=== PATIENT | female | born 1945 | race Hispanic/Latino ===

== ENCOUNTER 2017-08-06 06:36 | Day surgery (SDC) | payer MEDICARE, BC ==
[2017-08-03 09:00] VITALS: BMI 35.0
--- NOTE | 2017-08-06 01:07 | HP ---
REASON FOR ADMISSION: Left heart cath, possible angioplasty, abnormal stress test. HISTORY OF PRESENT ILLNESS: This is a 71-year-old female with a past medical history significant for obesity, hypertension, hyperlipidemia, mitral and tricuspid regurgitation, COPD; underwent a stress test that shows the anterior wall ischemia. The patient is scheduled for elective cardiac cath and possible angioplasty. PAST MEDICAL HISTORY: Significant for diabetes, hypertension, hyperlipidemia, obesity, and COPD. SOCIAL HISTORY: Denies smoking. Denies any history of alcohol abuse. CURRENT MEDICATIONS: The patient is taking tramadol 50 mg daily, metformin 500 mg p.o. b.i.d., Neurontin 300 mg p.o. b.i.d., Naprosyn 500 mg twice a day, metolazone p.r.n, aspirin 81 mg daily, amlodipine 5 mg daily, albuterol inhaler 2.5 q. 6 hours p.r.n., Protonix, Singulair, Mobic, atorvastatin 20 mg daily, nebulizer albuterol inhaler two puffs q. 4 h. ALLERGIES: NO KNOWN DRUG ALLERGIES. REVIEW OF SYSTEMS: As per HPI. PHYSICAL EXAMINATION GENERAL: Height of the patient is 5 feet 3 inches, weight of the patient is 198 pounds, body mass index of 35 kg/m2. Blood pressure 130/68, heart rate 63. HEENT: PERRLA intact. NECK: Supple. No carotid bruits, JVD, or thyromegaly. CHEST: Clear to auscultation. HEART: S1 and S2 regular. ABDOMEN: Soft. EXTREMITIES: Clubbing and cyanosis negative. DIAGNOSTIC DATA: Previous cardiac workup as follows: The patient had a stress test dated 04/29/2017 that showed abnormal SPECT myocardial perfusion study, reversible small anterior apical defect perfusion ischemia; however, the effect of changing position of the breast cannot be excluded. When comparisons were made from previous stress test dated 06/21/2012, these defects are new. The patient had echocardiography done dated 04/15/2017 that showed the ejection fraction of 65% to 70%, trace mitral regurgitation and tricuspid regurgitation. RV systolic pressure was 23. The patient wanted to get it done after the holidays after the [place]. IMPRESSION AND PLAN: A 71-year-old obese female with past medical history significant for diabetes, hypertension, and hyperlipidemia, multivessel coronary artery disease, who underwent a stress test that was abnormal suggestive of ischemia. The patient is scheduled for elective cardiac cath, possible angioplasty. The patient was offered before, but the patient wanted to wait until the holidays after the [place]. The patient is scheduled for cardiac cath, possible angioplasty. We will review the lab. Further recommendation after the cardiac catheterization. We will follow up with you. Thank you Dr. Jorge for providing me the opportunity in taking care of this patient. Elton Adamson MD
[2017-08-06] MEDS ORDERED: Lidocaine 2% Inj (20ml) ONE (06:52)
[2017-08-06] MEDS ORDERED: Phenylephrine 10 mg/ml Inj ONE (06:53)
[2017-08-06] MEDS ORDERED: Midazolam 2 MG/2 ML VIAL ONE ×2 (06:53→08:31)
[2017-08-06] MEDS ORDERED: HEPARIN SODIUM/NS 2,000 ML IV ONE (06:54)
[2017-08-06] MEDS ORDERED: Iohexol 350mgl/ml 50 ML ONE (06:54)
[2017-08-06] MEDS ORDERED: Nitroglycerin 50mg in D5W 50 MG/250 ML BOTTLE IV ONE (06:54)
[2017-08-06] MEDS ORDERED: Iodixanol 320 MG/ML 200 ML BOTTLE IV ONE (06:54)
[2017-08-06] MEDS ORDERED: Iodixanol 320 MG/ML 100 ML BOTTLE IV ONE (06:54)
[2017-08-06 07:45] LABS: BASO # 0.04 K/mm3 (0.0-2.0); BASO % 0.4 % (0.0-3.0); EOS # 0.3 (0.0-0.7); EOS % 3.4 % (1.5-5.0); GRAN # 5.57 (1.4-6.5); GRAN % 57.4 % (50.0-68.0); HEMOGLOBIN 12.4 g/dL (12.0-16.0); LYMPH # 2.9 (1.2-3.4); LYMPH % 29.5 % (22.0-35.0); MEAN CELL VOLUME 89.2 fl (80.0-105.0); MEAN CORPUSCULAR HEMOGLOBIN 27.3 pg (25.0-35.0); MEAN CORPUSCULAR HGB CONC 30.5 g/dl (31.0-37.0); MEAN PLATELET VOLUME 10.8 fl (7.0-11.0); MONO # 0.9 (0.1-0.6); MONO % 9.3 % (1.0-6.0); RBC 4.55 10^6/uL (3.5-6.1); RED CELL DISTRIBUTION WIDTH 13.9 % (11.5-14.5); WHITE BLOOD COUNT 9.7 10^3/ul (4.5-11.0)
[2017-08-06 07:54] LABS: INR 0.91 (0.93-1.08); PARTIAL THROMBOPLASTIN TIME 28.3 Seconds (25.1-36.5); PROTHROMBIN TIME 10.4 SECONDS (9.4-12.5)
[2017-08-06 07:59] LABS: BLOOD UREA NITROGEN 25 mg/dL (7-21); CALCIUM 9.8 mg/dL (8.4-10.5); GFR AFRICAN-AMERICAN > 60; GFR NON-AFRICAN AMERICAN > 60; HDL CHOLESTEROL 86 mg/dL (29-60)
[2017-08-06 08:06] LABS: LDL CHOLESTEROL 101 mg/dL (0-129)
[2017-08-06] MEDS ORDERED: Bacitracin 500 Units/gm Oint Foilpak UD TOP ONE (09:10)
[2017-08-06] MEDS ORDERED: Sodium Chloride 0.9% 1,000 ML IV SCH (09:15)
[2017-08-06 09:32] VITALS: TEMP 98.2
[2017-08-06 09:59] VITALS: RESP 20
[2017-08-06 10:10] VITALS: O2SAT 97
[2017-08-06] MEDS ORDERED: Bacitracin 500 Units/gm Oint Foilpak UD ONE (12:19)
[2017-08-06 12:33] VITALS: BP 138/93; PULSE 70
--- NOTE | 2017-08-06 17:54 | CARD ---
APPROVED REPORT EKG Measurement Heart [id number] <Conclusion> Normal sinus rhythm Right bundle branch block Abnormal ECG
--- NOTE | 2017-08-06 19:16 | CARD ---
APPROVED REPORT Procedure(s) performed: Left Heart Catheterization HISTORY The patient is a 71 year-old female with a history of : most recent EF: 75%. (EF Method: RADIONUCLIDE), diabetes mellitus with oral treatment , chronic lung disease, tobacco history() : The patient is a former smoker , hypertension , dyslipidemia , Abnorma;l stress test showing apical ischemis. INDICATION The indication(s) include : positive stress test. CASE TECHNIQUE The patient was brought electively to the Cardiac Catheterization Laboratory in a fasting state and was prepped and draped in a sterile manner. The left wrist was infiltrated with 2% Lidocaine subcutaneous anesthesia. A 6FR GLIDESHEATH ACCESS KIT sheath was inserted into the left radial artery without difficulty. Coronary angiography was performed using coronary diagnostic catheters. The left coronary system was accessed and visualized with a Diagnostic ,5 Fr JL 3.5 catheter. The right coronary system was accessed and visualized with a Diagnostic ,5 Fr JR 4 catheter. The left ventricle was accessed and visualized with a 5 Fr Pigtail 145 (Angled) catheter. Closure device was deployed with a Fr TR Band (Regular) without any complications. The patient tolerated the procedure well and there were no complications associated with the procedure. Vessel Analysis The patient's coronary anatomy is co-dominant. The left main coronary artery is a medium size vessel . The left main bifurcates to the left anterior descending and circumflex. The left anterior descending artery is a medium size vessel with diffuse calcification noted throughout this vessel and without significant stenosis. There is a 50% stenosis in the mid segment. The first diagonal branch is a medium size vessel with diffuse calcification noted throughout this vessel and without significant stenosis. There is a 55-60% stenosis in the ostial segment. The circumflex artery is a medium size vessel with diffuse calcification noted throughout this vessel and without significant stenosis. The first obtuse marginal branch is a medium size vessel with diffuse calcification noted throughout this vessel and without significant stenosis. The left posterior descending artery is a medium size vessel with diffuse calcification noted throughout this vessel and without significant stenosis. The right coronary artery is a medium size vessel with diffuse calcification noted throughout this vessel and without significant stenosis. The right posterior descending artery is a medium size vessel with intimal irregularities and without significant stenosis. Left Ventricle The left ventricle is normal in size with normal contractility. There was no cardiomyopathy. The left ventricular ejection fraction is estimated to be 60-65%. The left ventricular end diastolic pressure is 16-18 mmHg. There was no gradient across the aortic valve upon pullback. Conclusion Non obstructive CAD limited to mid LAD 50%, and Ostial D1 55% preserved LV Fx.EF-60-65%,EDP-16-18 mmof Hg Recommendations Aggressive Medical TherapyCardiac Risk Reduction Program Weight Loss Reduction Program CC; Zaire/ Angela
== END 2017-08-06 13:15 | disposition home or self-care (01) ==
LOC: CATH 06:36
PROVIDERS: ATTEND Internal Medicine Cardiovascular Disease
DX: I25.10 Atherosclerotic heart disease of native coronary artery without angina pectoris (principal); E11.9 Type 2 diabetes mellitus without complications; J44.9 Chronic obstructive pulmonary disease, unspecified; E66.9 Obesity, unspecified; Z68.35 Body mass index [BMI] 35.0-35.9, adult; E78.5 Hyperlipidemia, unspecified; I10 Essential (primary) hypertension; Z79.84 Long term (current) use of oral hypoglycemic drugs; Z79.82 Long term (current) use of aspirin; Z87.891 Personal history of nicotine dependence
CPT/HCPCS: 36415; 80048; 80061; 85025; 85610; 85730; 86850; 86900; 93005; 93458; 99152; C1769; C1887 ×2; J1644 ×2; J2250; J2370; J3010; J7040 ×2; Q9967

== ENCOUNTER 2018-08-21 09:07 | Emergency (ER) | payer MEDICARE, BC ==
[2018-08-21 09:12] VITALS: BMI 35.4
[2018-08-21] MEDS ORDERED: Sodium Chloride 0.9% 1,000 ML IV SCH (09:30)
--- NOTE | 2018-08-21 09:37 | ED PDOC ---
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 Patient reports woke up and had an episode of room spinning dizziness with associated stuttering and nausea that lasted approximately 30 minutes. Patient states feeling resolved on its own and was able to call and the ambulance. Patient currently complaining of mild nausea. Pt had vertigo last year but did not come to ER for evaluation, states it was similar to this. Patient states she experiences stuttering whenever shes not feeling well ever since the resection of her brain tumor. Patient reports she did not take any of her medication this morning and has not yet eaten today. Patient denies any fever, chills, shortness of breath, chest pain, vision changes, facial droop, weakness, numbness, parasthesia, back pain, neck pain, headache, or any other complaints. PMD: Berhane Leos Time/Duration: 4-6 hours (earlier today) Symptom Onset: Sudden Symptom Course: Improving Activities at Onset: Light Context: Home Past Medical History - Provider Review Nursing Documentation Reviewed: Yes - Infectious Disease Hx of Infectious Diseases: None - Tetanus Immunization Tetanus Immunization: Unknown - Reproductive Menopause: Yes - Cardiac Hx Pacemaker: No - Pulmonary Hx Chronic Obstructive Pulmonary Disease (COPD): Yes - Neurological Hx Paralysis: No - HEENT Hx HEENT Disorder: Yes Hx Cataracts: Yes Hx Glaucoma: Yes Other/Comment: h/o cataract implants - Renal Hx Renal Disorder: No - Endocrine/Metabolic Hx Endocrine Disorders: Yes Hx Diabetes Mellitus Type 2: Yes - Hematological/Oncological Hx Blood Transfusions: Yes - Integumentary Hx Dermatological Disorder: Yes (SCAR TO RIGHT FOOT AREA AND LEG.) - Musculoskeletal/Rheumatological Hx Musculoskeletal Disorders: Yes - Gastrointestinal Hx Gastrointestinal Disorders: Yes (RECTAL BLEED,COLON SURGERY) Hx Gastroesophageal Reflux: Yes - Genitourinary/Gynecological Hx Genitourinary Disorders: No - Psychiatric Hx Substance Use: No - Surgical History Hx Appendectomy: Yes Hx Cholecystectomy: Yes Other/Comment: BRAIN SX 20YRS .SX FOR INTESTIN .NECK SX 2008. spinal surgery C1- C7 march 2016. - Anesthesia Hx Anesthesia Reactions: No Hx Malignant Hyperthermia: No - Suicidal Assessment Feels Threatened In Home Enviroment: No Family/Social History - Physician Review Nursing Documentation Reviewed: Yes Family/Social History: No Known Family HX Smoking Status: Former Smoker Hx Alcohol Use: No Hx Substance Use: No Hx Substance Use Treatment: No Allergies/Home Meds Allergies/Adverse Reactions: Allergies No Known Allergies Allergy (Verified 08/01/16 14:08) Home Medications: Home Meds Medication Instructions Recorded Confirmed Atorvastatin Calcium [Lipitor] 10 mg PO HS 08/06/12 06/15/18 FLUoxetine [Prozac] 20 mg PO HS 04/29/17 06/15/18 Prednisone [Ludin] 5 mg PO DAILY 04/29/17 08/21/18 Aspirin [Aspirin Chewable] 81 mg PO DAILY 08/03/17 06/15/18 Gabapentin [Neurontin] 300 mg PO BID 08/03/17 06/15/18 amLODIPine [Norvasc] 5 mg PO DAILY 08/03/17 06/15/18 metFORMIN [glucOPHAGE] 500 mg PO BID 08/03/17 06/15/18 traMADol [Ultram] 50 mg PO Q6H PRN 08/03/17 06/15/18 Esomeprazole Magnesium [Nexium] 40 mg PO DAILY 08/21/18 08/21/18 Meloxicam [Mobic] 15 mg PO PRN PRN 08/21/18 08/21/18 Review of Systems - Physician Review All systems were reviewed & negative as marked: Yes - Review of Systems Constitutional: Normal. absent: Fevers, Other (chills) Eyes: Normal. absent: Vision Changes ENT: Normal. absent: Sore Throat, Sinus Congestion Respiratory: Normal. absent: SOB Cardiovascular: Normal. absent: Chest Pain Gastrointestinal: Nausea. absent: Abdominal Pain, Stool Changes, Vomiting, Appetite Changes Genitourinary Female: absent: Dysuria, Frequency, Vaginal Bleeding, Vaginal Discharge Musculoskeletal: absent: Back Pain, Neck Pain, Joint Swelling Skin: Normal. absent: Rash Neurological: Normal, Dizziness, Other (stuttering, no weakness, numbness, or parasthesia,). absent: Headache, Facial Droop Physical Exam Vital Signs Reviewed: Yes Temperature: Afebrile Blood Pressure: Normal Pulse: Regular Respiratory Rate: Normal Appearance: Positive for: Well-Appearing, Non-Toxic Mental Status: Positive for: Alert and Oriented X 3 Finger Stick Blood Glucose: 132 - Systems Exam Head: Present: Atraumatic, Normocephalic Pupils: Present: PERRL Extroacular Muscles: Present: EOMI Conjunctiva: Present: Normal Ears: Present: Normal Mouth: Present: Moist Mucous Membranes Neck: Present: Normal Range of Motion. No: Meningeal Signs, MIDLINE TENDERNESS, Paraspinal Tenderness Respiratory/Chest: Present: Decreased Breath Sounds (bilaterally). No: Respiratory Distress, Accessory Muscle Use Cardiovascular: Present: Regular Rate and Rhythm, Normal S1, S2, Peripheal Pulses Present. No: Murmurs Abdomen: Present: Normal Bowel Sounds. No: Tenderness, Distention, Peritoneal Signs Back: Present: Normal Inspection. No: CVA Tenderness Upper Extremity: Present: Normal Inspection, Normal ROM, NORMAL PULSES, Neurovascularly Intact, Capillary Refill < 2s. No: Cyanosis, Edema, Temperature Abnormalties Lower Extremity: Present: NORMAL PULSES, Neurovascularly Intact, Capillary Refill < 2 s. No: Temperature Abnormalties Neurological: Present: GCS=15, CN II-XII Intact, Speech Normal, Motor Func Grossly Intact, Normal Sensory Function, Normal Cerebellar Funct, Gait Normal, Memory Normal Skin: Present: Warm, Dry, Normal Color. No: Rashes Lymphatic: No: Cervical Adenopathy Psychiatric: Present: Alert, Oriented x 3, Normal Insight, Normal Concentration, Normal Affect, Normal Mood Medical Decision Making ED Course and Treatment: 08/21/18 09:05 Impression: 72 year old female presents to the emergency department complaining of vertigo. Plan: -- Fingerstick -- EKG -- Labs -- Chest X-ray -- Aspirin -- Antivert -- Zofran -- IV fluids -- Urinalysis, culture -- Reassess and disposition Prior Visits: Notes and results from previous visits were reviewed. Patient was seen on 08/01/16 for wheezing and shortness of breath and was admitted for observation. Progress Notes: Fingerstick wnl EKG similar to prior, no acute changes 09:[address] Aguilar who also saw and examined patient at bedside, agrees with plan of care and disposition. Patient has experienced these symptoms in the past, has history of vertigo and stuttering since brain surgery approx 20 years ago, states that this time was just "worst than the last few times". No focal neurologic findings. No indication for code stroke. 11:00 Labwork unremarkable UA shows trace leuk esterase and blood, will give antibiotics for possible UTI. CT head negative for acute pathology. Will give ASA. 11:15 Patient reports complete resolution of symptoms with IVF and Meclizine. Spoke with PMD Dr. Berhane Jorge. States there is no criteria for admission at this time, but will keep patient in observation if she desires. Spoke with patient, who is requesting discharge home. Will discharge home secondary to unremarkable workup and given that patient is currently asymptomatic. Denies dizziness, chest pain, SOB, or any neurological complaints. Dr. Aguilar agrees with disposition. 11:53 PMD, Dr. Jorge came to the ER to evaluate patient at bedside, agrees with disposition to discharge patient home. - Lab Interpretations Lab Results: 08/21/18 09:35 08/21/18 09:35 Lab Results 08/21/18 09:55: Influenza Typ A,B (EIA) Negative for flu a/b 08/21/18 09:55: Urine Color Yellow, Urine Appearance Clear, Urine pH 6.0, Ur Specific [place] >= 1.030, Urine Protein Negative, Urine Glucose (UA) Negative, Urine Ketones Negative, Urine Blood Trace-intact H, Urine Nitrate Negative, Urine Bilirubin Negative, Urine Urobilinogen 0.2, Ur Leukocyte Esterase Trace H, Urine RBC 1 - 3 H, Urine WBC 2 - 5, Ur Epithelial Cells 1 - 3, Urine Bacteria Few 08/21/18 09:35: Hemoglobin A1c 7.9 H 08/21/18 09:35: Sodium 141, Potassium 4.5, Chloride 103, Carbon Dioxide 30, Anion Gap 13, BUN 24 H, Creatinine 0.7, Est GFR ( Amer) > 60, Est GFR (Non-Af Amer) > 60, Random Glucose 129 H, Calcium 9.5, Total Bilirubin 0.5, AST 19, ALT 17, Alkaline Phosphatase 88, Troponin I < 0.01, NT-Pro-B Natriuret Pep 220, Total Protein 7.2, Albumin 4.0, Globulin 3.2, Albumin/Globulin Ratio 1.3, Triglycerides 133, Cholesterol 180, LDL Cholesterol Direct 85, HDL Cholesterol 69 H 08/21/18 09:35: PT 10.2, INR 0.90, APTT 36.0 08/21/18 09:35: WBC 9.1 D, RBC 4.72, Hgb 12.4, Hct 40.6, MCV 86.0, MCH 26.3, MCHC 30.5 L, RDW 14.0, Plt Count 312, MPV 10.2, Neut % (Auto) 60.6, Lymph % ( Auto) 26.5, [place] % (Auto) 8.8 H, Eos % (Auto) 3.9, Baso % (Auto) 0.2, Lymph # (Auto) 2.4, [place] # (Auto) 0.8 H, Eos # (Auto) 0.4, Baso # (Auto) 0.02, Absolute Neuts (auto) 5.48 I have reviewed the lab results: Yes - RAD Interpretation Narrative RAD Interpretations (Text): 08/21/18 10:56 PROCEDURE: CT HEAD WITHOUT CONTRAST. D[employer] Transfer Car Operator : Joon Mohan MD FINDINGS: HEMORRHAGE: No intracranial hemorrhage. BRAIN: No mass effect or edema. Mild atrophy and [id number] white matter changes likely represent chronic microvascular ischemic disease. VENTRICLES: Unremarkable. No hydrocephalus. CALVARIUM: The patient status post prior temporal frontal craniotomy. PARANASAL SINUSES: Unremarkable as visualized. No significant inflammatory changes. MASTOID AIR CELLS: Unremarkable as visualized. No inflammatory changes. OTHER FINDINGS: None. IMPRESSION: No evidence of acute intracranial hemorrhage mass effect or midline shift. CXR: No interval change, no active disease Radiology Orders: 08/21/18 09:29 HEAD W/O CONTRAST [CT] Stat 08/21/18 09:30 CHEST PORTABLE [RAD] Stat Professor Of Geology: Radiologist - EKG Interpretation EKG Interpretation (Text): 08/21/18 09:36 Rate 78; NSR, RBBB; Normal intervals; No STEMI, nonspecific ST/T wave changes Interpreted by ED Physician: Yes (Dr. Aguilar) Type: 12 lead EKG Comparison: Similar to previous EKG - Medication Orders Current Medication Orders: Sodium Chloride (Sodium Chloride 0.9%) 1,000 mls @ 100 mls/hr IV .Q10H KEITH NIHSS Scale (Goff) Time Performed: 09:37 - How Severe is the Stoke Baseline Level of Consciousness: 0=Alert LOC to Questions: 0=Both comments correct LOC to commands: 0=Obeys both correctly Best Gaze: 0=Normal Visual: 0=No visual loss Facial: 0=Normal Motor Arm - Left: 0=No drift Motor Arm - Right: 0=No drift Motor Leg - Left: 0=No drift Motor Leg - Right: 0=No drift Limb Ataxia: 0=Absent Sensory: 0=Normal Best Language: 0=No aphasia Dysarthia: 0=Normal articulation Extinction & Inattention (Neglect): 0=Normal, no object Score: 0 Risk Level: No Stroke Risk - Scribe Statement The provider has reviewed the documentation as recorded by the Shanthiibe Marilou Ward All medical record entries made by the Scribe were at my direction and personally dictated by me. I have reviewed the chart and agree that the record accurately reflects my personal performance of the history, physical exam, medical decision making, and the department course for this patient. I have also personally directed, reviewed, and agree with the discharge instructions and disposition. Disposition/Present on Arrival - Present on Arrival Any Indicators Present on Arrival: No History of DVT/PE: No History of Uncontrolled Diabetes: No Urinary Catheter: No History of Decub. Ulcer: No History Surgical Site Infection Following: None - Disposition Have Diagnosis and Disposition been Completed?: Yes Diagnosis: Vertigo Disposition: HOME/ ROUTINE Disposition Time: 11:45 Condition: IMPROVED Discharge Instructions (ExitCare): Vertigo (a Type of Dizziness), Labyrinthitis Additional Instructions: Increase fluids Keflex every 12 hours for 7 days Antivert every 12 hours as needed Followup with Dr. Jorge within 2 days Followup with ENT within 2 days Followup with neurology within 2 days Return to ER with any new/worsening symptoms Prescriptions: Cephalexin [Keflex] 500 mg PO Q12H 7 Days #14 capsule Meclizine [Antivert] 12.5 mg PO Q12H #6 tab Referrals: Ronan Mckenzie DO [Staff Provider] - Follow up with primary Berhane Jorge JD, MD [Primary Care Provider] - Follow up with primary Danay Aceves MD [Staff Provider] - Follow up with primary Forms: [facility] (Kinyarwanda), WORK NOTE
[2018-08-21 09:40] VITALS: RESP 19; TEMP 98
[2018-08-21 09:47] LABS: BASO # 0.02 K/mm3 (0.0-2.0); BASO % 0.2 % (0.0-3.0); EOS # 0.4 (0.0-0.7); EOS % 3.9 % (1.5-5.0); HEMOGLOBIN 12.4 g/dL (12.0-16.0); LYMPH # 2.4 (1.2-3.4); LYMPH % 26.5 % (22.0-35.0); MEAN CORPUSCULAR HEMOGLOBIN 26.3 pg (25.0-35.0); MEAN CORPUSCULAR HGB CONC 30.5 g/dl (31.0-37.0); MEAN PLATELET VOLUME 10.2 fl (7.0-11.0); MONO # 0.8 (0.1-0.6); MONO % 8.8 % (1.0-6.0); RBC 4.72 10^6/uL (3.5-6.1); WHITE BLOOD COUNT 9.1 10^3/uL (4.5-11.0)
[2018-08-21 09:52] LABS: INR 0.9; PROTHROMBIN TIME 10.2 SECONDS (9.4-12.5)
[2018-08-21 09:59] LABS: ALB/GLOB RATIO 1.3 (1.1-1.8); ALT/SGPT 17 U/L (7-56); AST/SGOT 19 U/L (14-36); BLOOD UREA NITROGEN 24 mg/dL (7-21); CALCIUM 9.5 mg/dL (8.4-10.5); GFR NON-AFRICAN AMERICAN > 60; HDL CHOLESTEROL 69 mg/dL (29-60)
[2018-08-21 10:10] LABS: B-TYPE NATRIURETIC PEPTIDE 220 pg/mL (0-450); LDL CHOLESTEROL 85 mg/dL (0-129); TROPONIN I < 0.01 ng/mL
--- NOTE | 2018-08-21 10:14 | CT ---
Date of service: 08/21/2018 PROCEDURE: CT HEAD WITHOUT CONTRAST. HISTORY: dizziness COMPARISON: None available. TECHNIQUE: Axial computed tomography images were obtained through the head/brain without intravenous contrast. Radiation dose: Total exam DLP = 847.69 mGy-cm. This CT exam was performed using one or more of the following dose reduction techniques: Automated exposure control, adjustment of the mA and/or kV according to patient size, and/or use of iterative reconstruction technique. FINDINGS: HEMORRHAGE: No intracranial hemorrhage. BRAIN: No mass effect or edema. Mild atrophy and [id number] white matter changes likely represent chronic microvascular ischemic disease. VENTRICLES: Unremarkable. No hydrocephalus. CALVARIUM: The patient status post prior temporal frontal craniotomy. PARANASAL SINUSES: Unremarkable as visualized. No significant inflammatory changes. MASTOID AIR CELLS: Unremarkable as visualized. No inflammatory changes. OTHER FINDINGS: None. IMPRESSION: No evidence of acute intracranial hemorrhage mass effect or midline shift.
[2018-08-21 10:44] LABS: URINE APPEARANCE CLEAR (CLEAR); URINE BILIRUBIN NEGATIVE (NEGATIVE); URINE BLOOD TRACE-INTACT (NEGATIVE); URINE COLOR YELLOW (YELLOW); URINE GLUCOSE (UA) NEGATIVE (NEGATIVE); URINE LEUKOCYTE ESTERASE TRACE Leu/uL (NEGATIVE); URINE PROTEIN NEGATIVE mg/dL (<30 mg/dL); URINE UROBILINOGEN 0.2 E.U./dL (<1 E.U./dL)
[2018-08-21 10:52] LABS: URINE BACTERIA FEW /hpf
[2018-08-21 11:43] VITALS: O2SAT 99
[2018-08-21 11:58] VITALS: BP 123/59; PULSE 85
--- NOTE | 2018-08-21 13:37 | RAD ---
Date of service: 08/21/2018 HISTORY: dizziness COMPARISON: Comparison is made with 06/15/2018 FINDINGS: LUNGS: No evidence of new infiltrate or consolidation in the lungs. PLEURA: No significant pleural effusion identified, no pneumothorax apparent. CARDIOVASCULAR: No aortic atherosclerotic calcification present. Normal cardiac size. No pulmonary vascular congestion. OSSEOUS STRUCTURES: Deformity in the right chest wall is again noted. VISUALIZED UPPER ABDOMEN: Normal. OTHER FINDINGS: None. IMPRESSION: No active disease.
--- NOTE | 2018-08-21 22:26 | CARD ---
APPROVED REPORT Date of service: 08/21/2018 EKG Measurement Heart [id number] <Conclusion> Normal sinus rhythm Right bundle branch block Baseline artifact Abnormal ECG
== END 2018-08-21 11:54 | disposition home or self-care (01) ==
LOC: ED 09:07
DX: R42 Dizziness and giddiness (principal); E11.9 Type 2 diabetes mellitus without complications; J44.9 Chronic obstructive pulmonary disease, unspecified; E78.5 Hyperlipidemia, unspecified; Z87.891 Personal history of nicotine dependence
CPT/HCPCS: 70450; 71045; 80053; 80061; 81001; 83036; 83880; 84484; 85025; 85610; 85730; 87086; 87804; 93005; 96374; 99285; J2405; J7030